=== PATIENT | female | born 1980 | race Two or more races ===

== ENCOUNTER 2016-06-23 06:32 | Emergency (ER) | payer OTHER ==
[~2016-06-23] VITALS: Ht 162.6 cm; Wt 68.0 kg
--- NOTE | 2016-06-23 06:50 | NUR ---
To bed 1 a 36 yo female bibself with c/o right flank pain for 2 days, no fever, no n/v/diarrhea. Patient is aaox4, ambulatory. Respiration even and unlabored. No s/s of acute distress. Awaiting for er md coronado.
--- NOTE | 2016-06-23 07:00 | NUR ---
urine collected via clean catch.
--- NOTE | 2016-06-23 07:12 | NUR ---
Report given to fabiola LÓPEZ for eliseo.
--- NOTE | 2016-06-23 07:24 | NUR ---
patient on bed, in no acute distress. Still complainign of flank pain
[2016-06-23] MEDS ORDERED: KETOROLAC TROMETHAMINE INJ 30 MG/ML VIAL ONE (07:40)
[2016-06-23] MEDS ORDERED: IV NS 0.9% 1,000 ML ONE (07:41)
[2016-06-23] MEDS ORDERED: ONDANSETRON HCL/PF 4 MG/2 ML VIAL ONE (07:41)
[2016-06-23] MEDS ORDERED: IV SET PRIMARY PUMP SET 1 EA INFUS.SET MC ONE (07:41)
[2016-06-23] MEDS: ONDANSETRON HCL/PF 4 MG/2 ML VIAL IV ONE (07:48)
[2016-06-23 07:49] LABS: BASOPHILS % (AUTO) 0.2 % (0.0-2.0); EOSINOPHILS % (AUTO) 0.3 % (0.0-6.0); HEMATOCRIT 36 % (33-45); HEMOGLOBIN 11.7 g/dL (11.5-14.8); LYMPHOCYTES # (AUTO) 1.2 /CMM (0.8-4.8); LYMPHOCYTES % (AUTO) 10.6 % (20.0-44.0); MEAN CORPUSCULAR HEMOGLOBIN 26 PG (26.0-33.0); MEAN CORPUSCULAR HGB CONC 33 g/dl (31.0-36.0); MEAN CORPUSCULAR VOLUME 80 fL (82-100); MONOCYTES # (AUTO) 0.7 /CMM (0.1-1.30); MONOCYTES % (AUTO) 5.7 % (2.0-12.0); NEUTROPHILS # (AUTO) 9.5 /CMM (1.8-8.9); NEUTROPHILS % (AUTO) 83.2 % (43.0-81.0); PLATELET COUNT (AUTO) 322 /CMM (150-450); RED BLOOD CELL COUNT(AUTO) 4.46 MIL/uL (4.0-5.2); WHITE BLOOD COUNT (AUTO) 11.4 K/uL (4.3-11.0)
[2016-06-23] MEDS: IV NS 0.9% 1,000 ML BAG IV ONE (07:50)
[2016-06-23 07:51] LABS: APPEARANCE,URINE CLEAR (CLEAR); BILIRUBIN,URINE NEGATIVE (NEGATIVE); BLOOD, URINE 2+ Ery/uL (NEGATIVE); COLOR,URINE YELLOW (YELLOW); KETONES,URINE 2+ (NEGATIVE); LEUKOCYTE ESTERASE ,URINE NEGATIVE (NEGATIVE); NITRITE, URINE NEGATIVE (NEGATIVE); PROTEIN,URINE NEGATIVE (NEGATIVE); UGLUCOSE NEGATIVE (NEGATIVE); UROBILINOGEN,URINE 0.2 EU/dL (0.2)
[2016-06-23 07:58] LABS: PREGNANCY TEST URINE QUAL NEGATIVE (NEGATIVE)
[2016-06-23 07:59] LABS: ADD URINE CULTURE NO; BACTERIA,URINE Few /HPF (None Seen); SQUAMOUS EPITHELIAL CELL,UR Few /HPF (None Seen); WBC,URINE 0-2 /HPF (0-3)
[2016-06-23 07:59] LABS: CALCIUM, SERUM 8.9 mg/dL (8.5-10.1); CREATININE 1.1 mg/dL (0.6-1.3); POTASSIUM 3.8 mmol/L (3.5-5.1)
[2016-06-23] MEDS: KETOROLAC TROMETHAMINE INJ 30 MG/ML VIAL IV ONE (08:01)
--- NOTE | 2016-06-23 08:01 | NUR ---
MEDICATED PATIENT FOR PAIN
[2016-06-23 10:41] VITALS: BP 138/77
--- NOTE | 2016-06-23 10:41 | NUR ---
IV removed. Catheter intact and site benign. Pressure and 4x4 applied to site. No bleeding noted.
--- NOTE | 2016-06-23 10:41 | NUR ---
Patient discharged to home in stable condition. Written and verbal after care instructions given. Patient verbalizes understanding of instruction.
== END 2016-06-23 10:41 | disposition home or self-care (01) ==
LOC: ER 06:38
DX: N23 Unspecified renal colic (principal); Z87.442 Personal history of urinary calculi
CPT/HCPCS: 36415; 80048-TC; 81000-TC; 84703-TC; 85025-TC; A4606; J1885; J2405; J7030; Z7610